=== PATIENT | female | born 2000 | race African-American/Black ===

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

== ENCOUNTER 2021-06-10 18:55 | Emergency (ER) | payer MEDICAID ==
[~2021-06-10] VITALS: Ht 162.6 cm; Wt 73.0 kg
[2021-06-10] MEDS ORDERED: ACETAMINOPHEN 325MG TABLET PO ONE (22:30)
[2021-06-11 01:01] LABS: BASOPHILS % 0.6 % (0.0-2.0); EOSINOPHILS % 1.2 % (0.0-5.0); HEMATOCRIT. 39.7 % (36.0-48.0); HEMOGLOBIN. 13.2 g/dL (12.0-16.0); LYMPHOCYTES % 36.4 % (20.0-50.0); MEAN CORPUSCULAR HEMOGLOBIN 30.3 pg (28.0-32.0); MEAN CORPUSCULAR VOLUME 91.1 fL (81.0-99.0); MEAN PLATELET VOLUME 8.5 fl (7.4-10.4); MONOCYTES % 8.9 % (2.0-8.0); NEUTROPHILS % 52.9 % (40.0-76.0); PLATELET 290 x1000/uL (130-400); RED BLOOD CELL COUNT 4.36 mill/uL (4.2-5.4); RED CELL DISTRIBUTION WIDTH 12.8 % (11.6-14.6)
[2021-06-11 01:05] LABS: CLARITY URINE CLEAR (CLEAR); COLOR URINE YELLOW (YELLOW); KETONES URINE TRACE (NEGATIVE); LEUKOCYTE ESTERASE URINE TRACE (NEGATIVE); NITRITE URINE NEGATIVE (NEGATIVE); OCCULT BLOOD URINE NEGATIVE (NEGATIVE); PROTEIN URINE TRACE (NEGATIVE); SPECIFIC GRAVITY URINE 1.023 (1.005-1.030)
[2021-06-11 01:06] LABS: CHLORIDE 116 mEq/L (98-107)
[2021-06-11 01:10] LABS: ETHANOL BLOOD < 10 mg/dL
[2021-06-11 01:31] LABS: *AMPHETAMINES SCREEN URINE NEGATIVE (NEGATIVE); *BARBITURATES SCREEN URINE NEGATIVE (NEGATIVE)
[2021-06-11 01:32] LABS: *BENZODIAZEPINES SCREEN URINE NEGATIVE (NEGATIVE); *COCAINE SCREEN URINE NEGATIVE (NEGATIVE); CANNABINOID URINE SCREEN NEGATIVE (NEGATIVE); METHADONE URINE SCREEN NEGATIVE (NEGATIVE); OPIATES URINE SCREEN NEGATIVE (NEGATIVE); PHENCYCLIDINE URINE SCREEN NEGATIVE (NEGATIVE)
[2021-06-11] MEDS: BENZTROPINE MESYLATE 1MG TABLET PO ONE ×2 (02:15→03:13)
[2021-06-11] MEDS ORDERED: ACET-2708 MT (02:57)
[2021-06-11 10:24] VITALS: BP 117/64
== END 2021-06-11 10:38 | disposition home or self-care (01) ==
LOC: ER 19:46
DX: S00.01XA Abrasion of scalp, initial encounter (principal); F99 Mental disorder, not otherwise specified; J45.909 Unspecified asthma, uncomplicated; Z91.018 Allergy to other foods; Z91.09 Other allergy status, other than to drugs and biological substances; Y04.0XXA Assault by unarmed brawl or fight, initial encounter; Y93.89 Activity, other specified; Y92.89 Other specified places as the place of occurrence of the external cause; Y99.8 Other external cause status
CPT/HCPCS: 36415; 80053; 80305; 80307; 80320; 80329; 81003; 85025; 99283; G0480

== ENCOUNTER 2021-06-20 22:02 | Emergency (ER) | payer MEDICAID ==
[~2021-06-20] VITALS: Ht 162.6 cm; Wt 91.0 kg
[~2021-06-20 22:02] MED LIST changes: +ACET-2708 MT
[2021-06-21 09:25] VITALS: BP 131/74
== END 2021-06-21 09:26 | disposition home or self-care (01) ==
LOC: ER 22:02
DX: Z04.89 Encounter for examination and observation for other specified reasons (principal); J45.909 Unspecified asthma, uncomplicated; Z59.0 Homelessness; Z91.018 Allergy to other foods; Z91.048 Other nonmedicinal substance allergy status
CPT/HCPCS: 99283

== ENCOUNTER 2021-06-22 02:25 | Emergency (ER) | payer MEDICAID ==
[~2021-06-22] VITALS: Ht 157.5 cm; Wt 107.0 kg
[2021-06-22 02:41] VITALS: BP 119/75
== END 2021-06-22 03:30 | disposition home or self-care (01) ==
LOC: ER 02:25
DX: Z76.0 Encounter for issue of repeat prescription (principal); J45.909 Unspecified asthma, uncomplicated; F31.9 Bipolar disorder, unspecified; I10 Essential (primary) hypertension; Z79.899 Other long term (current) drug therapy
CPT/HCPCS: 99283

== ENCOUNTER 2021-06-24 15:29 | Emergency (ER) | payer MEDICAID ==
[~2021-06-24] VITALS: Ht 157.5 cm; Wt 107.0 kg
[2021-06-24] MEDS ORDERED: ACETAMINOPHEN 325MG TABLET PO STA (18:43)
[2021-06-24] MEDS: ONDANSETRON HCL 4MG/2ML INJ IV STA ×2 (18:43→19:05)
[2021-06-24] MEDS ORDERED: VISCOUS LIDOCAINE 2% 15 ML UDC PO STA (18:43)
[2021-06-24] MEDS ORDERED: MAGNESIUM/ALUMINUM HYDROXIDE/SIMETHICONE 30ML UDC PO STA (18:43)
[2021-06-24] MEDS: PANTOPRAZOLE SODIUM 40 MG/VIAL IV STA ×2 (18:43→19:04)
[2021-06-24 19:40] VITALS: BP 128/80
[2021-06-24] MEDS ORDERED: ONDANSETRON 4MG ODT PO ONE (20:00)
== END 2021-06-24 19:49 | disposition left against medical advice (07) ==
LOC: ER 15:29
DX: R10.9 Unspecified abdominal pain (principal); J45.909 Unspecified asthma, uncomplicated; I10 Essential (primary) hypertension; Z13.9 Encounter for screening, unspecified; Z88.8 Allergy status to other drugs, medicaments and biological substances; Z86.59 Personal history of other mental and behavioral disorders
CPT/HCPCS: 99284; Q0162; C9113; J2405

== ENCOUNTER 2021-07-26 20:50 | Emergency (ER) | payer MEDICAID ==
[~2021-07-26] VITALS: Ht 165.1 cm; Wt 100.0 kg
[2021-07-26] MEDS ORDERED: LEVETIRACETAM 500MG TABLET PO ONE (21:30)
[2021-07-26 23:53] LABS: CHLORIDE 114 mEq/L (98-107)
[2021-07-27 00:06] LABS: CLARITY URINE CLEAR (CLEAR); COLOR URINE DARK YELLOW (YELLOW)
[2021-07-27 00:07] LABS: KETONES URINE 1+ (NEGATIVE); LEUKOCYTE ESTERASE URINE NEGATIVE (NEGATIVE); NITRITE URINE NEGATIVE (NEGATIVE); OCCULT BLOOD URINE NEGATIVE (NEGATIVE); PH URINE 5.5 (4.5-8.0); PROTEIN URINE TRACE (NEGATIVE); SPECIFIC GRAVITY URINE 1.036 (1.005-1.030)
[2021-07-27 00:27] LABS: ETHANOL BLOOD < 10 mg/dL
[2021-07-27 00:30] VITALS: BP 128/74
[2021-07-27 00:42] LABS: *AMPHETAMINES SCREEN URINE NEGATIVE (NEGATIVE); *BARBITURATES SCREEN URINE NEGATIVE (NEGATIVE); *BENZODIAZEPINES SCREEN URINE NEGATIVE (NEGATIVE); *COCAINE SCREEN URINE NEGATIVE (NEGATIVE); METHADONE URINE SCREEN NEGATIVE (NEGATIVE); OPIATES URINE SCREEN NEGATIVE (NEGATIVE)
[2021-07-27 00:43] LABS: CANNABINOID URINE SCREEN NEGATIVE (NEGATIVE); PHENCYCLIDINE URINE SCREEN NEGATIVE (NEGATIVE)
[2021-07-27 00:56] LABS: PHENOBARBITAL < 2.1 ug/mL (15.0-40.0); VALPROIC ACID < 3.0 ug/mL (50-100)
[2021-07-27 00:57] LABS: CARBAMAZEPINE < 0.5 ug/mL (4-12)
== END 2021-07-27 01:25 | disposition left against medical advice (07) ==
LOC: ER 20:50
DX: R56.9 Unspecified convulsions (principal)
CPT/HCPCS: 36415; 80053; 80156; 80165; 80184; 80185; 80305; 80320; 81003; 81025; 99283; G0480

== ENCOUNTER 2021-08-29 04:43 | Emergency (ER) | payer MEDICAID ==
[~2021-08-29] VITALS: Ht 167.6 cm; Wt 75.0 kg
[2021-08-29 04:45] VITALS: BP 128/72
[2021-08-29] MEDS ORDERED: CLOT15CR27 TP (05:44)
[2021-08-29 05:47] LABS: CLARITY URINE TURBID (CLEAR); COLOR URINE YELLOW (YELLOW); KETONES URINE NEGATIVE (NEGATIVE); LEUKOCYTE ESTERASE URINE 3+ (NEGATIVE); NITRITE URINE NEGATIVE (NEGATIVE); OCCULT BLOOD URINE TRACE (NEGATIVE); PROTEIN URINE 1+ (NEGATIVE); SPECIFIC GRAVITY URINE 1.024 (1.005-1.030)
[2021-08-29] MEDS ORDERED: NITR-87 MT (06:03)
== END 2021-08-29 06:27 | disposition home or self-care (01) ==
LOC: ER 05:14
DX: N30.00 Acute cystitis without hematuria (principal); Z79.899 Other long term (current) drug therapy; Z88.8 Allergy status to other drugs, medicaments and biological substances; Z86.59 Personal history of other mental and behavioral disorders; Z98.890 Other specified postprocedural states
CPT/HCPCS: 81003; 81025; 87210; 99283

== ENCOUNTER 2021-08-29 17:31 | Emergency (ER) | payer MEDICAID ==
[~2021-08-29] VITALS: Ht 165.1 cm; Wt 91.0 kg
[~2021-08-29 17:31] MED LIST changes: +CLOT15CR27 TP; +NITR-87 MT
[2021-08-29] MEDS ORDERED: SODIUM CHLORIDE 0.9% 1,000 ML IV ONE (18:00)
[2021-08-29 20:00] VITALS: BP 128/76
== END 2021-08-29 20:45 | disposition left against medical advice (07) ==
LOC: ER 17:31
DX: R56.9 Unspecified convulsions (principal); Z88.8 Allergy status to other drugs, medicaments and biological substances; Z79.899 Other long term (current) drug therapy; Z98.890 Other specified postprocedural states
CPT/HCPCS: 71045; 99283; J7030

== ENCOUNTER 2021-10-08 21:19 | Emergency (ER) | payer MEDICAID ==
[~2021-10-08] VITALS: Ht 162.6 cm; Wt 86.0 kg
[2021-10-08] MEDS ORDERED: LEVE500T9 MT (22:56)
[2021-10-09] MEDS ORDERED: LEVETIRACETAM 500MG TABLET PO ONE (00:45)
[2021-10-09 01:45] VITALS: BP 119/57
== END 2021-10-09 02:10 | disposition home or self-care (01) ==
LOC: ER 21:19
DX: Z76.0 Encounter for issue of repeat prescription (principal); T74.51XA Adult forced sexual exploitation, confirmed, initial encounter; F31.9 Bipolar disorder, unspecified; G40.909 Epilepsy, unspecified, not intractable, without status epilepticus; Y07.03 Male partner, perpetrator of maltreatment and neglect; Z91.014 Allergy to mammalian meats; Z88.8 Allergy status to other drugs, medicaments and biological substances
CPT/HCPCS: 99283

== ENCOUNTER 2021-11-22 23:47 | Inpatient (IN) | payer MEDICAID, OTHER ==
[~2021-11-22] VITALS: Ht 154.9 cm; Wt 120.7 kg
[~2021-11-22 23:47] MED LIST changes: +LEVE500T9 MT
[2021-11-23 01:59] LABS: BASOPHILS % 0.6 % (0.0-2.0); EOSINOPHILS % 0.6 % (0.0-5.0); HEMOGLOBIN. 11.9 g/dL (12.0-16.0); LYMPHOCYTES % 38.5 % (20.0-50.0); MEAN CORPUSCULAR HEMOGLOBIN 28.8 pg (28.0-32.0); MEAN CORPUSCULAR VOLUME 89.5 fL (81.0-99.0); MEAN PLATELET VOLUME 8.1 fl (7.4-10.4); MONOCYTES % 10.7 % (2.0-8.0); NEUTROPHILS % 49.6 % (40.0-76.0); PLATELET 321 x1000/uL (130-400); RED BLOOD CELL COUNT 4.14 mill/uL (4.2-5.4); RED CELL DISTRIBUTION WIDTH 13.3 % (11.6-14.6)
[2021-11-23 02:05] LABS: CHLORIDE 114 mEq/L (98-107)
[2021-11-23 02:08] LABS: ETHANOL BLOOD < 10 mg/dL
[2021-11-23 02:29] LABS: CLARITY URINE TURBID (CLEAR); COLOR URINE YELLOW (YELLOW); KETONES URINE NEGATIVE (NEGATIVE); LEUKOCYTE ESTERASE URINE 1+ (NEGATIVE); NITRITE URINE NEGATIVE (NEGATIVE); OCCULT BLOOD URINE NEGATIVE (NEGATIVE); PROTEIN URINE NEGATIVE (NEGATIVE); SPECIFIC GRAVITY URINE 1.022 (1.005-1.030)
[2021-11-23 02:59] LABS: CANNABINOID URINE SCREEN NEGATIVE (NEGATIVE)
[2021-11-23 03:00] LABS: *AMPHETAMINES SCREEN URINE NEGATIVE (NEGATIVE); *BARBITURATES SCREEN URINE NEGATIVE (NEGATIVE); *BENZODIAZEPINES SCREEN URINE NEGATIVE (NEGATIVE); *COCAINE SCREEN URINE NEGATIVE (NEGATIVE); METHADONE URINE SCREEN NEGATIVE (NEGATIVE); OPIATES URINE SCREEN NEGATIVE (NEGATIVE); PHENCYCLIDINE URINE SCREEN NEGATIVE (NEGATIVE)
[2021-11-23] MEDS ORDERED: LACTATED RINGERS 1,000 ML IV SCH ×3 (06:00→06:15)
[2021-11-23 11:00] VITALS: BP 102/53
[2021-11-23] MEDS ORDERED: LORAZEPAM 2MG/ML CPJ IV PRN (11:30)
[2021-11-23] MEDS ORDERED: ONDANSETRON HCL 4MG/2ML INJ IV PRN (11:30)
[2021-11-23] MEDS ORDERED: ACETAMINOPHEN 325MG TABLET PO PRN (11:30)
[2021-11-23] MEDS ORDERED: LEVE500T19 PO (11:38)
[2021-11-23] MEDS ORDERED: DOCU-268 PO (11:38)
[2021-11-23] MEDS ORDERED: TOPI200T15 PO (11:38)
[2021-11-23] MEDS ORDERED: GABA-532 PO (11:38)
[2021-11-23] MEDS ORDERED: OLAN20TA34 MT (11:50)
[2021-11-23] MEDS ORDERED: GUAI600T44 MT (11:50)
[2021-11-23] MEDS ORDERED: CLOZ100T31 MT (11:50)
[2021-11-23] MEDS ORDERED: BENZ1TAB7 MT (11:50)
[2021-11-23] MEDS ORDERED: CLOZ25TA4 MT (11:50)
[2021-11-23] MEDS ORDERED: FLUT15.844 BOTHNSTRLS (11:50)
[2021-11-23] MEDS ORDERED: ACET-2708 MT (11:50)
[2021-11-23 12:00] VITALS: BP_SYST 109; BP_SYST 110; BP_DIAS 58; BP_DIAS 67
[2021-11-23] MEDS ORDERED: *PATIENT'S OWN MEDICATION STORAGE XX SCH (12:30)
[2021-11-23 13:00] VITALS: BP 115/75
[2021-11-23] MEDS ORDERED: LEVETIRACETAM 500MG TABLET PO SCH (21:00)
== END 2021-11-23 14:00 | disposition left against medical advice (07) | DRG 53 ==
LOC: ER 23:47 → 3WST 11-23 06:21 → ENRESERV 11-23 07:25
PROVIDERS: ADMIT Internal Medicine; ATTEND Internal Medicine
DX: G40.409 Other generalized epilepsy and epileptic syndromes, not intractable, without status epilepticus (principal); Z68.43 Body mass index [BMI] 50.0-59.9, adult; E66.01 Morbid (severe) obesity due to excess calories; F31.9 Bipolar disorder, unspecified; Z20.822 Contact with and (suspected) exposure to COVID-19; I10 Essential (primary) hypertension; Z53.29 Procedure and treatment not carried out because of patient's decision for other reasons; J45.909 Unspecified asthma, uncomplicated; Z59.00 Homelessness unspecified; Z88.8 Allergy status to other drugs, medicaments and biological substances
CPT/HCPCS: 36415; 80053; 80305; 80320; 81003; 85025; 87426; 93005; 99285; G0480

== ENCOUNTER 2022-01-16 06:05 | Emergency (ER) | payer MEDICAID, OTHER ==
[~2022-01-16] VITALS: Ht 160 cm; Wt 104.4 kg
[~2022-01-16 06:05] MED LIST changes: -ALBUTEROL; +BENZ1TAB7 MT; +CLOZ100T31 MT; +CLOZ25TA4 MT; -DEPAKOTE; +DOCU-268 PO; +FLUT15.844 BOTHNSTRLS; +GABA-532 PO; +GUAI600T44 MT; +LEVE500T19 PO; +OLAN20TA34 MT; -SEROQUEL; -TOPAMAX; +TOPI200T15 PO
[2022-01-16 06:14] VITALS: BP 112/53
[2022-01-16] MEDS ORDERED: LEVETIRACETAM 500MG TABLET PO ONE (06:45)
[2022-01-16 08:37] LABS: BASOPHILS % 0.5 % (0.0-2.0); EOSINOPHILS % 0.3 % (0.0-5.0); HEMATOCRIT. 34.7 % (36.0-48.0); HEMOGLOBIN. 11.3 g/dL (12.0-16.0); LYMPHOCYTES % 28.4 % (20.0-50.0); MEAN CORPUSCULAR HEMOGLOBIN 28.9 pg (28.0-32.0); MEAN CORPUSCULAR VOLUME 88.7 fL (81.0-99.0); MEAN PLATELET VOLUME 7.8 fl (7.4-10.4); NEUTROPHILS % 59.8 % (40.0-76.0); PLATELET 317 x1000/uL (130-400); RED BLOOD CELL COUNT 3.91 mill/uL (4.2-5.4); RED CELL DISTRIBUTION WIDTH 14.6 % (11.6-14.6)
[2022-01-16 08:42] LABS: CHLORIDE 109 mEq/L (98-107)
[2022-01-16 08:43] LABS: HCG SCREEN POSITIVE
[2022-01-16] MEDS ORDERED: VITA0.4T18 MT (12:25)
[2022-01-16] MEDS ORDERED: KEPP500 MT (12:25)
[2022-01-16 12:58] LABS: CLARITY URINE CLEAR (CLEAR); COLOR URINE YELLOW (YELLOW); KETONES URINE NEGATIVE (NEGATIVE); LEUKOCYTE ESTERASE URINE TRACE (NEGATIVE); NITRITE URINE NEGATIVE (NEGATIVE); OCCULT BLOOD URINE NEGATIVE (NEGATIVE); PROTEIN URINE NEGATIVE (NEGATIVE); UROBILINOGEN URINE 0.2 E.U./dL (0.2-1.0)
== END 2022-01-16 12:46 | disposition home or self-care (01) ==
LOC: ER 06:05
DX: O26.891 Other specified pregnancy related conditions, first trimester (principal); R56.9 Unspecified convulsions; Z3A.01 Less than 8 weeks gestation of pregnancy
CPT/HCPCS: 36415; 76801; 80053; 81003; 84702; 84703; 85025; 99284

== ENCOUNTER 2022-08-19 20:23 | Emergency (ER) | payer MEDICAID, OTHER ==
[~2022-08-19] VITALS: Ht 157.5 cm; Wt 109.7 kg
[~2022-08-19 20:23] MED LIST changes: +CLOZ100T13 MT; -CLOZ100T31 MT; +CLOZ25TA12 MT; -CLOZ25TA4 MT; +KEPP500 MT; +VITA0.4T18 MT
[2022-08-19] MEDS ORDERED: VALPROIC ACID 250MG CAPSULE PO ONE (23:00)
[2022-08-19] MEDS ORDERED: LEVETIRACETAM 500MG PREMIX 100 ML IV ONE (23:00)
[2022-08-20] MEDS ORDERED: VALPROIC ACID 250MG CAPSULE PO NR (02:15)
[2022-08-20] MEDS ORDERED: LEVETIRACETAM 500MG PREMIX 100 ML IV NR (02:15)
[2022-08-20] MEDS ORDERED: KEPP500 MT (03:49)
[2022-08-20 04:47] VITALS: BP 140/90
== END 2022-08-20 05:10 | disposition home or self-care (01) ==
LOC: ER 20:32
DX: G40.909 Epilepsy, unspecified, not intractable, without status epilepticus (principal); G91.9 Hydrocephalus, unspecified; J45.909 Unspecified asthma, uncomplicated; Z86.011 Personal history of benign neoplasm of the brain; Z91.14 Patient's other noncompliance with medication regimen; Z91.014 Allergy to mammalian meats; Z88.8 Allergy status to other drugs, medicaments and biological substances
CPT/HCPCS: 93005; 99284; J1953

== ENCOUNTER 2024-02-27 04:55 | Emergency (ER) | payer MEDICAID ==
[~2024-02-27] VITALS: Ht 154.9 cm; Wt 88.0 kg
[~2024-02-27 04:55] MED LIST changes: -BENZ1TAB7 MT; +BENZ1TAB78 MT
[2024-02-27 05:01] VITALS: TEMP 98.4; O2SAT 98
[2024-02-27] MEDS: SODIUM CHLORIDE 0.9% 1,000 ML IV ONE (06:15)
[2024-02-27] MEDS: LEVETIRACETAM 1000MG PREMIX 100 ML IV ONE (06:15)
[2024-02-27 06:46] VITALS: BP 99/50; PULSE 79; RESP 16
[2024-02-27] MEDS: LEVETIRACETAM 500MG PREMIX 100 ML IV ONE (07:15)
[2024-02-27 07:34] LABS: CARBON DIOXIDE 23 mEq/L (21-32); CHLORIDE 110 mEq/L (98-107); POTASSIUM 3.9 mEq/L (3.5-5.1); SODIUM 142 mEq/L (136-145)
[2024-02-27 07:35] LABS: CALCIUM 9.3 mg/dL (8.7-10.4)
[2024-02-27] MEDS: LEVETIRACETAM 500MG TABLET PO ONE (07:38)
[2024-02-27 07:39] LABS: CREATININE 0.6 mg/dL (0.6-1.0); GLUCOSE 82 mg/dL (70-105)
[2024-02-27 07:40] LABS: ETHANOL BLOOD < 10 mg/dL (<10); UREA NITROGEN BLOOD 9 mg/dL (9-23)
[2024-02-27 07:41] LABS: ALANINE AMINOTRANSFERASE 25 IU/L (10-49); ALBUMIN 3.7 g/dL (3.2-4.8); ASPARTATE AMINOTRANSFERASE 32 IU/L (<34)
[2024-02-27 07:42] LABS: PROTEIN TOTAL 6.4 g/dL (6.0-8.3)
[2024-02-27 07:43] LABS: HCG SCREEN NEGATIVE
[2024-02-27 07:44] LABS: BILIRUBIN TOTAL < 0.2 mg/dL (0.1-1.0)
[2024-02-27 07:54] LABS: PHENOBARBITAL < 3.0 ug/mL (15.0-40.0); PHENYTOIN < 2.0 ug/mL (10-20)
[2024-02-27 07:56] LABS: CARBAMAZEPINE < 0.4 ug/mL (4-12); VALPROIC ACID < 3.0 ug/mL (50-100)
[2024-02-27 08:25] LABS: CLARITY URINE CLEAR (CLEAR); COLOR URINE YELLOW (YELLOW); GLUCOSE URINE NEGATIVE (NEGATIVE); KETONES URINE NEGATIVE (NEGATIVE); LEUKOCYTE ESTERASE URINE NEGATIVE (NEGATIVE); NITRITE URINE NEGATIVE (NEGATIVE); OCCULT BLOOD URINE NEGATIVE (NEGATIVE); PROTEIN URINE NEGATIVE (NEGATIVE); SPECIFIC GRAVITY URINE 1.018 (1.005-1.030)
[2024-02-27 08:47] LABS: TROPONIN I HIGH SENSITIVITY < 4 ng/L (3.0-34)
[2024-02-27 09:16] LABS: BASOPHILS % 0.4 % (0.0-2.0); DIFFERENTIAL COMMENT 0; EOSINOPHILS % 0.3 % (0.0-5.0); HEMATOCRIT. 28.4 % (36.0-48.0); HEMOGLOBIN. 9.4 g/dL (12.0-16.0); LYMPHOCYTES % 32.3 % (20.0-50.0); MEAN CORPUSCULAR HEMOGLOBIN 34.7 pg (28.0-32.0); MEAN CORPUSCULAR HGB CONC 33.1 g/dL (31.0-37.0); MEAN CORPUSCULAR VOLUME 104.9 fL (81.0-99.0); MEAN PLATELET VOLUME 7.1 fl (7.4-10.4); MONOCYTES % 11.9 % (2.0-8.0); NEUTROPHILS % 55.1 % (40.0-76.0); PLATELET 355 x1000/uL (130-400); RED BLOOD CELL COUNT 2.71 mill/uL (4.2-5.4); RED CELL DISTRIBUTION WIDTH 16.3 % (11.6-14.6)
[2024-02-27 09:56] LABS: *AMPHETAMINES SCREEN URINE NEGATIVE (NEGATIVE); *BARBITURATES SCREEN URINE NEGATIVE (NEGATIVE); *BENZODIAZEPINES SCREEN URINE NEGATIVE (NEGATIVE); *COCAINE SCREEN URINE NEGATIVE (NEGATIVE); CANNABINOID URINE SCREEN NEGATIVE (NEGATIVE); ECSTASY MDMA SCREEN URINE NEGATIVE (NEGATIVE); METHADONE URINE SCREEN NEGATIVE (NEGATIVE); OPIATES URINE SCREEN NEGATIVE (NEGATIVE); PHENCYCLIDINE URINE SCREEN NEGATIVE (NEGATIVE)
[2024-02-27] MEDS ORDERED: KEPP500 MT (10:59)
== END 2024-02-27 11:21 | disposition home or self-care (01) ==
LOC: ER 04:55
DX: G40.909 Epilepsy, unspecified, not intractable, without status epilepticus (principal); J45.909 Unspecified asthma, uncomplicated; Z76.0 Encounter for issue of repeat prescription; Z88.8 Allergy status to other drugs, medicaments and biological substances; Z79.899 Other long term (current) drug therapy
CPT/HCPCS: 80053; 80305; 81003; 80320; 80156; 80185; 84703; 80184; 80165; 85025; 84484; 36415; 71045; 70450; 96360; 96361; 99284; J7030; Z7610 ×2; G0480

== ENCOUNTER 2024-03-17 15:34 | Emergency (ER) | payer MEDICAID ==
[~2024-03-17] VITALS: Ht 154.9 cm; Wt 100.0 kg
[2024-03-17 15:45] VITALS: BP 125/73; PULSE 111; RESP 18; TEMP 98.5; O2SAT 98
[2024-03-17] MEDS ORDERED: KEPP500 MT (17:18)
== END 2024-03-17 17:56 | disposition home or self-care (01) ==
LOC: ER 15:34
DX: G40.909 Epilepsy, unspecified, not intractable, without status epilepticus (principal); J45.909 Unspecified asthma, uncomplicated; Z76.0 Encounter for issue of repeat prescription; Z91.048 Other nonmedicinal substance allergy status; Z79.899 Other long term (current) drug therapy
CPT/HCPCS: 99281

== ENCOUNTER 2024-04-10 19:37 | Emergency (ER) | payer MEDICAID, OTHER ==
[~2024-04-10] VITALS: Ht 162.6 cm; Wt 913.0 kg
[2024-04-10 19:59] VITALS: TEMP 98.5; O2SAT 99
[2024-04-10] MEDS: LEVETIRACETAM 500MG PREMIX 100 ML IV ONE (21:29)
[2024-04-10 22:01] VITALS: BP 106/61; PULSE 80; RESP 14
== END 2024-04-10 22:09 | disposition home or self-care (01) ==
LOC: ER 19:37
DX: R56.9 Unspecified convulsions (principal); J45.909 Unspecified asthma, uncomplicated; F31.9 Bipolar disorder, unspecified; F20.9 Schizophrenia, unspecified
CPT/HCPCS: 82962; 96365; 99284; J1953; Z7610 ×2

== ENCOUNTER 2024-08-04 22:23 | Emergency (ER) | payer MEDICAID, OTHER ==
[~2024-08-04] VITALS: Ht 167.6 cm; Wt 102.0 kg
[~2024-08-04 22:23] MED LIST changes: -OLAN20TA34 MT; +OLAN20TA79 MT
[2024-08-04 22:24] VITALS: O2SAT 98
[2024-08-05] MEDS: LEVETIRACETAM 1000MG PREMIX 100 ML IV ONE (00:12)
[2024-08-05 00:13] LABS: BASOPHILS % 0.5 % (0.0-2.0); EOSINOPHILS % 0.4 % (0.0-5.0); HEMATOCRIT. 30.4 % (36.0-48.0); HEMOGLOBIN. 9.7 g/dL (12.0-16.0); LYMPHOCYTES % 51.7 % (20.0-50.0); MEAN CORPUSCULAR HEMOGLOBIN 29.5 pg (28.0-32.0); MEAN CORPUSCULAR HGB CONC 31.8 g/dL (31.0-37.0); MEAN CORPUSCULAR VOLUME 92.7 fL (81.0-99.0); MEAN PLATELET VOLUME 7.5 fl (7.4-10.4); MONOCYTES % 8.3 % (2.0-8.0); NEUTROPHILS % 39.1 % (40.0-76.0); PLATELET 225 x1000/uL (130-400); RED BLOOD CELL COUNT 3.28 mill/uL (4.2-5.4); RED CELL DISTRIBUTION WIDTH 17.2 % (11.6-14.6); WHITE BLOOD COUNT 6.6 x1000/uL (4.5-11.0)
[2024-08-05 00:20] LABS: CHLORIDE 108 mEq/L (98-107); POTASSIUM 4.1 mEq/L (3.5-5.1); SODIUM 141 mEq/L (136-145)
[2024-08-05 00:21] LABS: CARBON DIOXIDE 28 mEq/L (21-32)
[2024-08-05 00:22] LABS: CALCIUM 9.1 mg/dL (8.7-10.4)
[2024-08-05 00:26] LABS: CREATININE 0.7 mg/dL (0.6-1.0); GLUCOSE 94 mg/dL (70-105); UREA NITROGEN BLOOD 10 mg/dL (9-23)
[2024-08-05 00:27] LABS: VALPROIC ACID 72.2 ug/mL (50-100)
[2024-08-05 00:36] VITALS: BP 91/43; PULSE 56; RESP 16; TEMP 36.94740; O2SAT 98
== END 2024-08-05 01:36 | disposition home or self-care (01) ==
LOC: ER 22:23
DX: R56.9 Unspecified convulsions (principal); J45.909 Unspecified asthma, uncomplicated; F20.9 Schizophrenia, unspecified; F31.9 Bipolar disorder, unspecified; Z79.899 Other long term (current) drug therapy
CPT/HCPCS: 36415; 80048; 80165; 85025; 96365; 99284; J1953

== ENCOUNTER 2025-01-27 01:13 | Emergency (ER) | payer OTHER ==
[~2025-01-27] VITALS: Ht 160 cm; Wt 113.0 kg
[~2025-01-27 01:13] MED LIST changes: +GABA-1180 PO; -GABA-532 PO
[2025-01-27 01:21] VITALS: BP 112/88; PULSE 79; RESP 18; TEMP 36.6; O2SAT 98
== END 2025-01-27 04:07 | disposition left against medical advice (07) ==
LOC: ER 01:13
DX: T74.21XA Adult sexual abuse, confirmed, initial encounter (principal); N98.9 Complication associated with artificial fertilization, unspecified; Z79.899 Other long term (current) drug therapy
CPT/HCPCS: 99283

== ENCOUNTER 2025-01-27 04:24 | Emergency (ER) | payer OTHER ==
[~2025-01-27] VITALS: Ht 157.5 cm; Wt 78.0 kg
[2025-01-27 04:36] VITALS: BP 109/60; PULSE 69; RESP 18; TEMP 36.8; O2SAT 100; O2SAT 98
== END 2025-01-27 08:40 | disposition left against medical advice (07) ==
LOC: ER 04:24
DX: Z00.8 Encounter for other general examination (principal); Z59.00 Homelessness unspecified; Z79.899 Other long term (current) drug therapy; Z98.890 Other specified postprocedural states; Z88.8 Allergy status to other drugs, medicaments and biological substances
CPT/HCPCS: 99281